=== PATIENT | female | born 1970 | race Caucasian/White ===

== ENCOUNTER 2019-01-27 16:11 | Emergency (ER) | payer BC ==
--- NOTE | 2019-01-27 16:18 | UC ---
Throat Pain/Nasal Darrius HPI - HPI Summary HPI Summary: 48 yo female presents with sinus pain/pressure/congestion for 1 week. Over the last few days has developed a dry cough. Today developed right ear pain and muffled hearing. She has been taking ibuprofen and an OTC cold medicine with little relief. Denies fever, chills, SOB, rash. - History of Current Complaint Stated Complaint: SINUS COMPLAINT Time Seen by Provider: 01/27/19 16:17 Hx Obtained From: Patient Onset/Duration: Gradual Onset Severity: Moderate Pain Intensity: 6 Pain Scale Used: 0-10 Numeric Cough: Nonproductive - Allergies/Home Medications Allergies/Adverse Reactions: Allergies Allergy/AdvReac Type Severity Reaction Status Date / Time codeine Allergy GI Upset Verified 01/27/19 16:33 PMH/Surg Hx/FS Hx/Imm Hx - Additional Past Medical History Additional PMH: None - Surgical History Surgical History: None - Family History Known Family History: Positive: None - Social History Occupation: Employed Full-time Lives: With Family Alcohol Use: None Substance Use Type: None Smoking Status (MU): Never Smoked Tobacco - Immunization History Most Recent Influenza Vaccination: 2012 Most Recent Tetanus Shot: up to date Most Recent Pneumonia Vaccination: not got Review of Systems All Other Systems Reviewed And Are Negative: Yes Constitutional: Positive: Negative Skin: Positive: Negative Eyes: Positive: Negative ENT: Positive: Ear Ache, Nasal Discharge, Sinus Congestion, Sinus Pain/ Tenderness Respiratory: Positive: Cough Cardiovascular: Positive: Negative Gastrointestinal: Positive: Negative Neurovascular: Positive: Negative Neurological: Positive: Negative Psychological: Positive: Negative Physical Exam - Summary Physical Exam Summary: GENERAL: NAD. WDWN. No pain distress. SKIN: No rashes, sores, lesions, or open wounds. HEENT: Head: AT/NC Eyes: EOM intact. Conjunctiva clear without inflammation or discharge. Ears: Hearing grossly normal. RIGHT TM with mild erythema and bulging. No canal edema or drainage. LEFT TM WNL and intact Nose: Nasal mucosa mildly swollen and erythematous with yellow/ clear discharge. TTP maxillary and frontal sinus. Positive post nasal drip Throat: Posterior oropharynx without exudates, erythema, or tonsillar enlargement. Uvula midline. NECK: Supple. Nontender. No lymphadenopathy. CHEST: CTAB. No r/r/w. No accessory muscle use. Breathing comfortably and in no distress. CV: RRR. Without m/r/g. Pulses intact. NEURO: Alert. PSYCH: Age appropriate behavior. Triage Information Reviewed: Yes Vital Signs: Vital Signs: Temp Pulse Resp BP Pulse Ox 98.9 F 94 16 135/93 100 01/27/19 16:17 01/27/19 16:17 01/27/19 16:17 01/27/19 16:17 01/27/19 16:17 Vital Signs Reviewed: Yes Throat Pain/Nasal Course/Dx - Course Course Of Treatment: Right otitis media. Sinusitis - Differential Dx/Diagnosis Provider Diagnosis: Otitis media, Sinusitis Discharge - Sign-Out/Discharge Documenting (check all that apply): Patient Departure All imaging exams completed and their final reports reviewed: No Studies - Discharge Plan Condition: Stable Disposition: HOME Patient Education Materials: Ear Infection (ED) Referrals: Osmin Frye MD [Primary Care Provider] - Additional Instructions: If you develop a fever, shortness of breath, chest pain, new or worsening symptoms - please call your PCP or go to the ED immediately. - Billing Disposition and Condition Condition: STABLE Disposition: Home - Attestation Statements Provider Attestation: I was available for consult. This patient was seen by the [facility]. The patient was not presented to , seen by or examined by al -Rosalinda Villaseñor MD
[2019-01-27 16:31] VITALS: BP 135/93
== END 2019-01-27 16:37 | disposition home or self-care (01) ==
LOC: UCEAST 16:11
DX: J32.9 Chronic sinusitis, unspecified (principal); H66.91 Otitis media, unspecified, right ear; Z88.5 Allergy status to narcotic agent
CPT/HCPCS: 99212; G0463

== ENCOUNTER 2019-12-30 16:21 | Emergency (ER) | payer BC ==
--- OUTSIDE RECORDS SUMMARY | 2019-12-30 16:47 | XMS REPORT | Continuity of Care Document ---
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 [phone] Medicine Problems Description No Information Available Social History Type Date Description Comments Sex Unknown Tobacco Use Start: Unknown Never Smoked Cigarettes Smoking Status Reviewed: 11/07/19 Never Smoked Cigarettes ETOH Use Denies alcohol use Tobacco Use Start: Unknown Patient has never smoked Recreational Drug Use Denies Drug Use Exercise Type/Frequency Exercises regularly Allergies, Adverse Reactions, Alerts Active Allergies Reaction Severity Comments Date Codeine 03/07/2014 Medications Active Medications SIG Qnty Indications Ordering Provider Date Mitochondrial NRG Tierra 08/06/2019 TONY Jimenez Progesterone take one capsule 42Caps Tierra 05/28/2019 Micronized at bedtime days TONY Jimenez 100mg Capsules 14-28 or 2 weeks on, 2 weeks off if not bleeding. Vitamin D-3 1 by mouth every Unknown 1000Unit day Capsules Vitamin B-12 1 by mouth every Unknown Natural day 500mcg Tablets Vitamin C ER 1 by mouth every Unknown 500mg day Capsules ER Multi Complete daily Unknown Capsules Dhea 1/2 by mouth one Unknown 10mg Capsules time per day Immunizations Description No Information Available Vital Signs Date Vital Result Comment 11/07/2019 2:29pm Height 66 inches 5'6" Weight 145.25 lb Heart Rate 82 /min BP Systolic 119 mmHg BP Diastolic 77 mmHg Body Temperature 98.4 F O2 % BldC Oximetry 100 % BMI (Body Mass Index) 23.4 kg/m2 08/06/2019 1:58pm Height 66 inches 5'6" Weight 147.00 lb Heart Rate 84 /min BP Systolic 115 mmHg BP Diastolic 79 mmHg Body Temperature 97.2 F O2 % BldC Oximetry 100 % BMI (Body Mass Index) 23.7 kg/m2 Results Description No Information Available Procedures Description No Information Available Medical Devices Description No Information Available Encounters Type Date Location Provider Dx Diagnosis Office Visit 11/07/2019 [facility] Tierra N95.9 Unspecified menopausal 2:00p Clinic [facility] TONY Jimenez and perimenopausal disorder M79.7 Fibromyalgia K02.9 Dental caries, unspecified R53.83 Other fatigue R10.84 Generalized abdominal pain Office Visit 08/06/2019 [facility] Tierra Jimenez, N95.9 Unspecified 2:00p [facility] [place] [facility] and [facility] perimenopausal [facility] disorder M79.7 Fibromyalgia K29.80 Duodenitis without bleeding Assessments Date Code Description Provider 11/07/2019 N95.9 Unspecified menopausal and perimenopausal TONY Ruiz disorder 11/07/2019 M79.7 Fibromyalgia Tierra Jimenez [place] 11/07/2019 K02.9 Dental caries, unspecified Tierra Jimenez PA 11/07/2019 R53.83 Other fatigue Tierra Jimenez PA 11/07/2019 R10.84 Generalized abdominal pain Tierra Jimenez PA 08/06/2019 N95.9 Unspecified menopausal and perimenopausal Tierra Jimenez [place] disorder 08/06/2019 M79.7 Fibromyalgia Tierra Jimenez PA 08/06/2019 K29.80 Duodenitis without bleeding TONY Ruiz Plan of Treatment Future Appointment(s):02/06/2020 2:00 pm - TONY Ruiz at [facility]11/07/2019 - Tierra Jimenez PAN95.9 Unspecified menopausal and perimenopausal disorderRecommendations:continue oral progesterone at [id number] FibromyalgiaRecommendations:fatigue/ you are staying on Mitochondria NRG take the elderberry at first sign of illness but don't stay on itK02.9 Dental caries, unspecifiedFollow up:3 monthsRecommendations:you are pursuing dental work and getting a second opinion. biocidin toothpaste in [facility] we discussed bone health/ relation to bone and general health watch Elisabeth Rodriguez's Better Bones website, watch her videos I will enter a Vitamin D with K in [facility], K directs calcium into bone Vitamin C 2000 mg daily weight bearing exercise and weight training is great for bone health consider the Digestive enzymes with your meals for awhile I will enter the [place] product again as I think this is important for youR53.83 Other fmyfjngS69.84 Generalized abdominal pain Functional Status Description No Information Available Mental Status Description No Information Available Referrals Refer to Dr Reason for Referral Status Appt Date Tamara Gee M.D. epigastric fullness, history of Scheduled 2019 duodenitis [address] [place] [address] [phone]
--- OUTSIDE RECORDS SUMMARY | 2019-12-30 16:47 | XMS REPORT | Continuity of Care Document ---
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 [phone] Medicine Problems Description No Information Available Social [...] 08/06/2019 TONY Jimenez Progesterone take one capsule 42Mukul Mayorga 05/28/2019 Micronized at bedtime days TONY Jimenez [...] one Unknown 10mg Capsules time per day History Medications Progesterone Please See Shaista Jimenez 05/14/2019 - Micronized Attached For TONY 05/28/2019 100mg Detailed Capsules Directions Immunizations Description No Information Available Vital Signs [...] Date Location Provider Dx Diagnosis Office Visit 08/06/2019 [facility] Tierra N95.9 Unspecified menopausal 2:00p Clinic of [facility] TONY Jimenez and perimenopausal disorder M79.7 Fibromyalgia K29.80 Duodenitis without bleeding Office Visit 05/28/2019 [facility] Tierra Jimenez, N95.9 Unspecified 2:00p [facility] [place] men[facility] and [facility] of 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 M79.7 Fibromyalgia K29.80 Duodenitis without bleeding Assessments Date Code Description Provider 11/07/2019 N95.9 Unspecified menopausal and perimenopausal Tierra Jimenez [place] disorder 11/07/2019 M79.7 Fibromyalgia Tierra Jimenez [place] 11/07/2019 K02.9 Dental caries, unspecified Tierra Jimenez [place] 08/06/2019 N95.9 Unspecified menopausal and perimenopausal Tierra Barbara , [place] disorder 08/06/2019 M79.7 Fibromyalgia Tierra Jimenez [place] 08/06/2019 K29.80 Duodenitis without bleeding Tierra Jimenez [place] 05/28/2019 N95.9 Unspecified menopausal and perimenopausal Tierra [place] , [place] disorder 05/28/2019 M79.7 Fibromyalgia Tierra Jimenez [place] 05/28/2019 K29.80 Duodenitis without bleeding TONY Ruiz Plan of Treatment Future Appointment(s):02/06/2020 2:00 pm - TONY Ruiz at [facility]11/07/2019 - Tierra Jimenez PAN95.9 Unspecified menopausal and perimenopausal disorderRecommendations:continue oral progesterone at uafklnbS66.7 FibromyalgiaRecommendations:fatigue/ you are staying on Mitochondria NRG take the elderberry at first sign of illness but don't stay on itK02.9 Dental caries, unspecifiedFollow up:3 monthsRecommendations:you are pursuing dental work and getting a second opinion. we discussed bone health/ relation to bone and general health watch Elisabeth Rodriguez's Better Bones website, watch her videos I will enter a Vitamin D with K in [employer], K directs calcium into bone Vitamin C 2000 mg daily weight bearing exercise and weight training is great for bone health consider the Digestive enzymes with your meals for awhile I will enter the [place] product again as I think this is important for you Functional Status Description No Information Available Mental Status Description No Information Available Referrals Description No Information Available
[2019-12-30 16:52] VITALS: BP 148/92
[2019-12-30] MEDS ORDERED: Lidocaine 1% MPF ** 5 ML VIAL INJ ONE (17:05)
--- NOTE | 2019-12-30 17:07 | UC ---
Hand/Wrist HPI - HPI Summary HPI Summary: 41-year-old woman comes in with a chief complaint of a laceration to her left thumb. This happened just prior to arrival when she accidentally cut her thumb on a kitchen cooking implement. Bleeding stopped with direct pressure. The area is painful. No loss of range of motion or decreased sensation. Patient reports her last tetanus shot was about 2 years ago. - History Of Current Complaint Chief Complaint: UCLaceration Stated Complaint: THUMB LAC Time Seen by Provider: 12/30/19 17:01 Hx Last Menstrual Period: 01/15/19 Pain Intensity: 4 - Allergies/Home Medications Allergies/Adverse Reactions: Allergies Allergy/AdvReac Type Severity Reaction Status Date / Time codeine Allergy GI Upset Verified 12/30/19 16:52 Home Medications: Home Medications Cephalexin CAP* [Keflex CAP*] 500 mg PO TID #21 cap 12/30/19 [Rx] Cholecalciferol (Vitamin D3) [Vitamin D3] 1 ml SL DAILY 12/30/19 [History Confirmed 12/30/19] L.acidoph,Paracasei, B.lactis [Probiotic] 1 each PO DAILY 12/30/19 [History Confirmed 12/30/19] [place]-3/Dha/Epa/Fish Oil [[place] 3 500 Softgel] 1 each PO DAILY 12/30/19 [ History Confirmed 12/30/19] Prasterone (Dhea)/Calcium Carb [Dhea 10 mg Tablet] 1 each PO DAILY 12/30/19 [ History Confirmed 12/30/19] PMH/Surg Hx/FS Hx/Imm Hx Previously Healthy: Yes - Surgical History Surgical History: None - Family History Known Family History: Positive: None - Social History Alcohol Use: None Substance Use Type: None Smoking Status (MU): Never Smoked Tobacco - Immunization History Most Recent Influenza Vaccination: 2012 Most Recent Tetanus Shot: 1-2 years ago Most Recent Pneumonia Vaccination: not got Review of Systems All Other Systems Reviewed And Are Negative: Yes Constitutional: Positive: Negative Skin: Positive: Other - SEE HPI Eyes: Positive: Negative ENT: Positive: Negative Respiratory: Positive: Negative Cardiovascular: Positive: Negative Gastrointestinal: Positive: Negative Motor: Positive: Negative Neurovascular: Positive: Negative Musculoskeletal: Positive: Negative Neurological/Mental Status: Positive: Negative Psychological: Positive: Negative Is Patient Immunocompromised?: No Physical Exam Triage Information Reviewed: Yes Appearance: Well-Appearing, No Pain Distress, Well-Nourished Vital Signs: Initial Vital Signs Temp 98.2 F 12/30/19 16:46 Pulse 75 12/30/19 16:46 Resp 16 12/30/19 16:46 BP 148/92 12/30/19 16:46 Pulse Ox 99 12/30/19 16:46 Vital Signs Reviewed: Yes Eye Exam: Normal Eyes: Positive: Conjunctiva Clear Neck: Positive: Supple Respiratory: Positive: No respiratory distress Musculoskeletal: Positive: Strength Intact, ROM Intact Neurological: Positive: Alert, Muscle Tone Normal Psychological: Positive: Age Appropriate Behavior Skin: Positive: Other - There is a 2 cm linear subcutaneous laceration on the pad of the left thumb. Normal capillary refill normal sensation and normal range of motion normal strength. Procedures - Laceration/Wound Repair 1 Location: upper extremity - left thumb Description: Linear Anesthesia: Local, 1.0%, Lido Length, Depth and Shape: 2 cm subcutaneous Betadine Prep?: No - irrigated by nursing with normal saline Laceration/Wound Explored: clean Closure: Single Layer Debridement: none Suture Type: Prolene - 5-0 Number of Sutures: 8 Layer Closure?: No Sterile Dressing Applied?: Yes - by nursing Hand/Wrist Course/Dx - Course Course Of Treatment: Sutures out in 8-10 days. Patient will start the Keflex as any signs of infection and get reevaluated. If there is any concerns patient follow-up with orthopedic hands. - Differential Dx/Diagnosis Provider Diagnosis: Laceration of thumb, left Discharge ED - Sign-Out/Discharge Documenting (check all that apply): Patient Departure All imaging exams completed and their final reports reviewed: No Studies - Discharge Plan Condition: Stable Disposition: HOME Prescriptions: Cephalexin CAP* [Keflex CAP*] 500 mg PO TID #21 cap Patient Education Materials: Care For Your Stitches (ED), Finger Laceration (ED ) Referrals: Osmin Frye MD [Primary Care Provider] - Tru Mcgee MD [Medical Doctor] - Whitney Marc MD [Medical Doctor] - Additional Instructions: FOLLOW UP WITH YOUR DOCTOR. IF THERE IS ANY SIGN OF INFECTION OR WEAKNESS/NUMBNESS/LOSS OF RANGE OF MOTION, FOLLOW UP WITH THE ORTHOPEDIC HAND SPECIALIST. Sutures out in 8-10 days. GET REEVALUATED IF NOT IMPROVED OR WORSE; PAIN, SIGNS OF INFECTION OR ANY QUESTIONS OR CONCERNS. - Billing Disposition and Condition Condition: STABLE Disposition: Home
== END 2019-12-30 17:55 | disposition home or self-care (01) ==
LOC: UCEAST 16:21
DX: S61.012A Laceration without foreign body of left thumb without damage to nail, initial encounter (principal); W26.0XXA Contact with knife, initial encounter; Y93.G3 Activity, cooking and baking; Y92.9 Unspecified place or not applicable; Z88.5 Allergy status to narcotic agent
CPT/HCPCS: 12001; 99212; G0463